=== PATIENT | male | born 1970 | race Caucasian/White ===

== ENCOUNTER 2018-01-02 19:39 | Observation (INO) | payer BC ==
[2018-01-02] MEDS ORDERED: Sodium Chloride 0.9% 10 ML Syringe FLUSH PRN (20:06)
[2018-01-02] MEDS ORDERED: Sodium Chloride 0.9% 2.5 ML Syringe FLUSH PRN (20:06)
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
[2018-01-02 20:51] LABS: CHLORIDE,CL 104 mmol/L (98-107); SODIUM,NA 137 mmol/L (136-148)
[2018-01-03] MEDS ORDERED: oxyCODONE 5 MG Tab PO PRN (00:04)
[2018-01-03] MEDS ORDERED: Enoxaparin 40 MG/0.4 ML Syringe SUBCUT SCH (01:45)
--- NOTE | 2018-01-03 01:47 | PCM.HP ---
H&P History of Present Illness - General Admit Problem/Dx: Admission Diagnosis/Problem Admission Diagnosis/Problem Cellulitis - History of Present Illness Initial Comments - Free Text/Narative: 47 yo male who presented with one day history of erythema of right onofre. He reports subjective fevers and chills. He denies any chest pain or shortness of breath. Generalized Pain Score (Numeric/FACES): 5 - Related Data Allergies/Adverse Reactions: Allergies Allergy/AdvReac Type Severity Reaction Status Date / Time ragweed pollen Allergy Intermediate Sneezing Verified 01/02/18 23:30 grass pollen-perennial rye, Allergy Sneezing Verified 01/02/18 23:30 standar weed pollen Allergy Sneezing Verified 01/02/18 23:30 Home Medications: Home Meds Cetirizine [ZyrTEC] 10 mg PO DAILY 01/02/18 [History] RX: Multivitamin [Multi-Day Vitamins] 1 tab DAILY 01/02/18 [History] RX: Naproxen 500 mg PO DAILY 01/02/18 [History] Past Medical History - Past Health History Medical/Surgical History: Denies Medical/Surgical History - Past Surgical History Musculoskeletal Surgical History: Reports: ORIF, Other (See Below) Other Musculoskeletal Surgeries/Procedures:: Surgical repair to right tib, fib and tibial plateau and right heel. Social & Family History - Family History Family Medical History: Noncontributory - Tobacco Use Smoking Status *Q: Never Smoker Second Hand Smoke Exposure: No - Caffeine Use Caffeine Use: Reports: Coffee, Soda - Recreational Drug Use Recreational Drug Use: No H&P Review of Systems - Review of Systems: Review Of Systems: ROS reveals no pertinent complaints other than HPI. Exam - Exam Exam: See Below - Vital Signs Vital Signs: Last Vital Signs Temp 36.7 C 01/02/18 22:50 Pulse 87 01/02/18 22:50 Resp 19 01/02/18 22:50 BP 119/79 01/02/18 22:50 Pulse Ox 97 01/02/18 22:50 Weight: 112.173 kg - Exam General: Alert, Oriented HEENT: Mucosa Moist & [place] Lungs: Clear to Auscultation, Normal Respiratory Effort Cardiovascular: Regular Rate, Regular Rhythm GI/Abdominal Exam: Soft, Non-Tender Extremities: Other (erythematous rash over lower anterior righ onofre, no area of fluctuance or drainage) - Patient Data Lab Results Last 24 hrs: Laboratory Results - last 24 hr 01/02/18 01/02/18 01/02/18 Range/Units 20:14 20:20 20:20 WBC 16.54 H (4.0-11.0) K/uL RBC 4.71 (4.50-5.90) M/uL Hgb 14.9 (13.0-17.0) g/dL Hct 42.1 (38.0-50.0) % MCV 89.4 (80.0-98.0) fL MCH 31.6 (27.0-32.0) pg MCHC 35.4 (31.0-37.0) g/dL RDW Std Deviation 41.7 (28.0-62.0) fl RDW Coeff of Yusuf 13 (11.0-15.0) % Plt Count 226 (150-400) K/uL MPV 10.80 (7.40-12.00) fL Neut % (Auto) 89.9 H (48.0-80.0) % Lymph % (Auto) 4.4 L (16.0-40.0) % [place] % (Auto) 5.6 (0.0-15.0) % Eos % (Auto) 0.0 (0.0-7.0) % Baso % (Auto) 0.1 (0.0-1.5) % Neut # (Auto) 14.9 H (1.4-5.7) K/uL Lymph # (Auto) 0.7 (0.6-2.4) K/uL [place] # (Auto) 0.9 H (0.0-0.8) K/uL Eos # (Auto) 0.0 (0.0-0.7) K/uL Baso # (Auto) 0.0 (0.0-0.1) K/uL Nucleated RBC % 0.0 /100WBC Nucleated RBCs # 0 K/uL ESR 1 (0-14) mm/hr Sodium 137 (136-148) mmol/L Potassium 3.8 (3.5-5.1) mmol/L Chloride 104 (98-107) mmol/L Carbon Dioxide 25.1 (21.0-32.0) mmol/L BUN 16 (7.0-18.0) mg/dL Creatinine 1.0 (0.8-1.3) mg/dL Est Cr Clr Drug Dosing TNP Estimated GFR (MDRD) > 60.0 ml/min Glucose 143 H (74-106) mg/dL Calcium 9.0 (8.5-10.1) mg/dL Total Bilirubin 1.0 (0.2-1.0) mg/dL AST 15 (15-37) IU/L ALT 21 (14-63) IU/L Alkaline Phosphatase 45 L (46-116) U/L C-Reactive Protein 11.30 H (0.00-0.90) mg/dL Total Protein 7.2 (6.4-8.2) g/dL Albumin 4.0 (3.4-5.0) g/dL Globulin 3.2 (2.0-3.5) g/dL Albumin/Globulin Ratio 1.3 (1.3-2.8) Result Diagrams: 01/03/18 05:41 01/03/18 05:41 Problem List Initiated/Reviewed/Updated: Yes Orders Last 24hrs: Active Orders 24 hr Category Date Time Status Patient Status [ADT] Stat ADT 01/02/18 21:39 Active Oxygen Therapy [RC] PRN Care 01/03/18 01:43 Ordered Up ad Veronika [RC] ASDIRECTED Care 01/03/18 01:43 Ordered VTE/DVT Education [RC] PER UNIT ROUTINE Care 01/03/18 01:43 Ordered Vital Signs [RC] Q4H Care 01/03/18 01:43 Ordered Regular Diet [DIET] Diet 01/03/18 Breakfast Active Tibia Fibula Rt [CR] Stat Exams 01/02/18 20:06 Taken BMP [BASIC METABOLIC PANEL,BMP] [CHEM] Routine Lab 01/03/18 05:00 Ordered CBC WITH AUTO DIFF [HEME] Routine Lab 01/03/18 05:00 Ordered CULTURE BLOOD [BC] Stat Lab 01/02/18 20:14 Received CULTURE BLOOD [BC] Stat Lab 01/02/18 20:20 Received Enoxaparin [Lovenox] Med 01/03/18 01:45 Ordered 40 mg SUBCUT Q24H Sodium Chloride 0.9% [Saline Flush] Med 01/02/18 20:06 Active 10 ml FLUSH ASDIRECTED PRN Sodium Chloride 0.9% [Saline Flush] Med 01/02/18 20:06 Active 2.5 ml FLUSH ASDIRECTED PRN Vancomycin 1.5 gm Med 01/03/18 06:00 Active Sodium Chloride 0.9% [Normal Saline] 500 ml IV Q8H Vancomycin Pharmacy to Dose [Pharmacy to Dose - Med 01/03/18 00:15 Pending Vancomycin] 1 dose .XX ASDIRECTED oxyCODONE Med 01/03/18 00:04 Active 5 mg PO Q4H PRN Blood Culture x2 Reflex Set [OM.PC] Stat Ot 01/02/18 20:05 Ordered Saline Lock Insert [OM.PC] Stat Ot 01/02/18 20:06 Ordered Sequential Compression Device [OM.PC] Per Unit Routine Ot 01/03/18 01:43 Ordered Resuscitation Status Routine Resus Stat 01/03/18 01:43 Ordered Medication Orders Vancomycin HCl 1.5 gm/ Sodium (Chloride) 500 mls @ 333.333 mls/hr IV Q8H [facility] Oxycodone HCl (Oxycodone) 5 mg PO Q4H PRN PRN Reason: Pain Sodium Chloride (Saline Flush) 10 ml FLUSH ASDIRECTED PRN PRN Reason: Keep Vein Open Sodium Chloride (Saline Flush) 2.5 ml FLUSH ASDIRECTED PRN PRN Reason: Keep Vein Open Vancomycin HCl (Pharmacy To Dose - Vancomycin) 1 dose .XX ASDIRECTED [facility] Assessment/Plan Comment:: 47 yo male admitted with right lower leg cellultis. We will treat with vancomycin
[2018-01-03] MEDS ORDERED: Vancomycin 1.5 GM in Sodium Chloride 0.9% 500 ML IV SCH (06:00)
[2018-01-03 06:34] LABS: CHLORIDE,CL 105 mmol/L (98-107); SODIUM,NA 139 mmol/L (136-148)
[2018-01-03] MEDS: Vancomycin 1.5 GM in Sodium Chloride 0.9% 500 ML IV SCH ×2 (09:25→17:52)
--- NOTE | 2018-01-03 15:20 | PCM.PN ---
- Review of Systems Systems Review Comment:: feeling better, no fevers. - Patient Data Vitals - Most Recent: Last Vital Signs Temp 36.8 C 01/03/18 11:52 Pulse 68 01/03/18 11:52 Resp 16 01/03/18 11:52 BP 120/76 01/03/18 11:52 Pulse Ox 96 01/03/18 11:52 Weight - Most Recent: 112.173 kg I&O - Last 24 Hours: Intake & Output 01/03/18 01/03/18 01/03/18 06:59 14:59 22:59 Intake Total 600 500 Balance 600 500 Lab Results Last 24 Hours: Laboratory Results - last 24 hr 01/02/18 01/02/18 01/02/18 Range/Units 20:14 20:20 20:20 WBC 16.54 H (4.0-11.0) K/uL RBC 4.71 (4.50-5.90) M/uL Hgb 14.9 (13.0-17.0) g/dL Hct 42.1 (38.0-50.0) % MCV 89.4 (80.0-98.0) fL MCH 31.6 (27.0-32.0) pg MCHC 35.4 (31.0-37.0) g/dL RDW Std Deviation 41.7 (28.0-62.0) fl RDW Coeff of Yusuf 13 (11.0-15.0) % Plt Count 226 (150-400) K/uL MPV 10.80 (7.40-12.00) fL Neut % (Auto) 89.9 H (48.0-80.0) % Lymph % (Auto) 4.4 L (16.0-40.0) % [place] % (Auto) 5.6 (0.0-15.0) % Eos % (Auto) 0.0 (0.0-7.0) % Baso % (Auto) 0.1 (0.0-1.5) % Neut # (Auto) 14.9 H (1.4-5.7) K/uL Lymph # (Auto) 0.7 (0.6-2.4) K/uL [place] # (Auto) 0.9 H (0.0-0.8) K/uL Eos # (Auto) 0.0 (0.0-0.7) K/uL Baso # (Auto) 0.0 (0.0-0.1) K/uL Nucleated RBC % 0.0 /100WBC Nucleated RBCs # 0 K/uL ESR 1 (0-14) mm/hr Sodium 137 (136-148) mmol/L Potassium 3.8 (3.5-5.1) mmol/L Chloride 104 (98-107) mmol/L Carbon Dioxide 25.1 (21.0-32.0) mmol/L BUN 16 (7.0-18.0) mg/dL Creatinine 1.0 (0.8-1.3) mg/dL Est Cr Clr Drug Dosing TNP Estimated GFR (MDRD) > 60.0 ml/min Glucose 143 H (74-106) mg/dL Calcium 9.0 (8.5-10.1) mg/dL Total Bilirubin 1.0 (0.2-1.0) mg/dL AST 15 (15-37) IU/L ALT 21 (14-63) IU/L Alkaline Phosphatase 45 L (46-116) U/L C-Reactive Protein 11.30 H (0.00-0.90) mg/dL Total Protein 7.2 (6.4-8.2) g/dL Albumin 4.0 (3.4-5.0) g/dL Globulin 3.2 (2.0-3.5) g/dL Albumin/Globulin Ratio 1.3 (1.3-2.8) 01/03/18 01/03/18 Range/Units 05:41 05:41 WBC 12.08 H (4.0-11.0) K/uL RBC 4.43 L (4.50-5.90) M/uL Hgb 13.8 (13.0-17.0) g/dL Hct 39.8 (38.0-50.0) % MCV 89.8 (80.0-98.0) fL MCH 31.2 (27.0-32.0) pg MCHC 34.7 (31.0-37.0) g/dL RDW Std Deviation 42.1 (28.0-62.0) fl RDW Coeff of Yusuf 13 (11.0-15.0) % Plt Count 198 (150-400) K/uL MPV 10.70 (7.40-12.00) fL Neut % (Auto) 82.0 H (48.0-80.0) % Lymph % (Auto) 10.6 L (16.0-40.0) % [place] % (Auto) 7.2 (0.0-15.0) % Eos % (Auto) 0.0 (0.0-7.0) % Baso % (Auto) 0.2 (0.0-1.5) % Neut # (Auto) 9.9 H (1.4-5.7) K/uL Lymph # (Auto) 1.3 (0.6-2.4) K/uL [place] # (Auto) 0.9 H (0.0-0.8) K/uL Eos # (Auto) 0.0 (0.0-0.7) K/uL Baso # (Auto) 0.0 (0.0-0.1) K/uL Nucleated RBC % 0.0 /100WBC Nucleated RBCs # 0 K/uL ESR (0-14) mm/hr Sodium 139 (136-148) mmol/L Potassium 3.5 (3.5-5.1) mmol/L Chloride 105 (98-107) mmol/L Carbon Dioxide 26.2 (21.0-32.0) mmol/L BUN 16 (7.0-18.0) mg/dL Creatinine 0.9 (0.8-1.3) mg/dL Est Cr Clr Drug Dosing 125.91 Estimated GFR (MDRD) > 60.0 ml/min Glucose 119 H (74-106) mg/dL Calcium 8.9 (8.5-10.1) mg/dL Total Bilirubin (0.2-1.0) mg/dL AST (15-37) IU/L ALT (14-63) IU/L Alkaline Phosphatase (46-116) U/L C-Reactive Protein (0.00-0.90) mg/dL Total Protein (6.4-8.2) g/dL Albumin (3.4-5.0) g/dL Globulin (2.0-3.5) g/dL Albumin/Globulin Ratio (1.3-2.8) Med Orders - Current: Current Medications Enoxaparin Sodium (Lovenox) 40 mg SUBCUT Q24H [facility] Vancomycin HCl 1.5 gm/ Sodium (Chloride) 500 mls @ 333.333 mls/hr IV Q8H [facility] Last Admin: 01/03/18 09:25 Dose: 333.333 mls/hr Oxycodone HCl (Oxycodone) 5 mg PO Q4H PRN PRN Reason: Pain Sodium Chloride (Saline Flush) 10 ml FLUSH ASDIRECTED PRN PRN Reason: Keep Vein Open Sodium Chloride (Saline Flush) 2.5 ml FLUSH ASDIRECTED PRN PRN Reason: Keep Vein Open Vancomycin HCl (Pharmacy To Dose - Vancomycin) 1 dose .XX ASDIRECTED [facility] Discontinued Medications Enoxaparin Sodium (Lovenox) 40 mg SUBCUT Q24H [facility] Last Admin: 01/03/18 02:05 Dose: 40 mg Vancomycin HCl 1 gm/ Sodium (Chloride) 250 mls @ 250 mls/hr IV ONETIME ONE Stop: 01/02/18 22:00 Last Admin: 01/02/18 21:38 Dose: 250 mls/hr Vancomycin HCl 500 mg/ Sodium (Chloride) 100 mls @ 100 mls/hr IV ONETIME ONE Stop: 01/03/18 01:29 Last Admin: 01/03/18 01:56 Dose: 100 mls/hr Vancomycin HCl 1.5 gm/ Sodium (Chloride) 500 mls @ 333.333 mls/hr IV Q8H [facility] - Exam General: Alert, Oriented HEENT: Mucous Membr. Moist/[place] Cardiovascular: Regular Rate, Regular Rhythm GI/Abdominal Exam: Soft, Non-Tender Extremities: Other (rash on right lower leg of anterior onofre remains the same, no areas of induration or fluctuance) Neurological: No New Focal Deficit - Problem List Review Problem List Initiated/Reviewed/Updated: Yes - My Orders Last 24 Hours: My Active Orders 01/03/18 00:04 oxyCODONE 5 mg PO Q4H PRN 01/03/18 00:15 Vancomycin Pharmacy to Dose [Pharmacy to Dose - Vancomycin] 1 dose .XX ASDIRECTED 01/03/18 01:43 Oxygen Therapy [RC] PRN Up ad Veronika [RC] ASDIRECTED VTE/DVT Education [RC] PER UNIT ROUTINE Vital Signs [RC] Q4H Sequential Compression Device [OM.PC] Per Unit Routine Resuscitation Status Routine 01/03/18 10:00 Vancomycin 1.5 gm Sodium Chloride 0.9% [Normal Saline] 500 ml IV Q8H 01/03/18 Breakfast Regular Diet [DIET] 01/04/18 06:00 Enoxaparin [Lovenox] 40 mg SUBCUT Q24H - Plan Plan:: 47 yo male admitted with right lower leg cellultis. We will continue another day of IV vancomycin
[2018-01-04] MEDS: Vancomycin 1.5 GM in Sodium Chloride 0.9% 500 ML IV SCH ×2 (01:42→11:52)
[2018-01-04] MEDS ORDERED: Enoxaparin 40 MG/0.4 ML Syringe SUBCUT SCH (06:00)
[2018-01-04 06:13] LABS: CHLORIDE,CL 108 mmol/L (98-107); SODIUM,NA 143 mmol/L (136-148)
--- NOTE | 2018-01-04 14:53 | CR ---
EXAM DATE: 01/02/18 PATIENT'S AGE: 47 Patient: EVELIA SYLVESTER Facility: [place], [place] Site . Site : [id number] Study: XRay Extremity Right tib/fib [id number]/28/2018 8:58:24 PM Ordering Physician: Doctor Alanis Final Report: HISTORY: Cellulitis. FINDINGS/IMPRESSION: Five views of the right tibia and fibula demonstrate 2 compression plate and multiple screws fixing a right tibial plateau fracture in anatomic alignment. Hardware is intact. There is degenerative changes in the medial and lateral joint spaces of the right knee. No joint effusion is identified. There is a tract from prior ORIF in the mid to distal tibial diaphysis. There are 4 screws fixing the calcaneus. There is a traction spur at the plantar aspect of the calcaneus. There are soft tissue phleboliths present. No acute fracture or bony abnormality is identified. Dictated by Mercedes Lyons MD @ 01/02/2018 9:08:50 PM Dictated by: Mercedes Lyons MD @ 01/02/2018 21:09:04 (Electronic Signature) Report Signed by Proxy. GUIDO
== END 2018-01-04 14:00 | disposition home or self-care (01) ==
LOC: MW.ED 19:39 → MW.MS 21:39
PROVIDERS: ADMIT Internal Medicine; ATTEND Internal Medicine
DX: L03.115 Cellulitis of right lower limb (principal); J30.1 Allergic rhinitis due to pollen; Z79.2 Long term (current) use of antibiotics
CPT/HCPCS: 36415; 73590; 80048; 80053; 80202; 85025; 85652; 86140; 87040; 96365; 99284; J1650; J3370; J7030; J7040; J7050; 96366; 96372; 96376; G0378

== ENCOUNTER 2019-06-26 12:53 | Inpatient (IN) | payer BC ==
--- NOTE | 2019-06-26 13:21 | EDM.PDOC ---
ED HPI GENERAL MEDICAL PROBLEM - General Chief Complaint: Lower Extremity Injury/Pain Stated Complaint: RIGHT SWOLLEN KNEE Time Seen by Provider: 06/26/19 13:11 Source of Information: Reports: Patient History Limitations: Reports: No Limitations - History of Present Illness INITIAL COMMENTS - FREE TEXT/NARRATIVE: HISTORY AND PHYSICAL: History of present illness: Patient is a 49-year-old male presents to the ED with complaint of right knee pain. He reports pain, swelling, and redness of the knee x 3 days. He denies recent injury or trauma. He states he did have an abrasion to the knee 1 week ago. Reports subjective fevers. He has history of cellulitis to the right lower extremity. He is able to walk on the right leg without difficultly. Review of systems: As per history of present illness and below otherwise all systems reviewed and negative. Past medical history: As per history of present illness and as reviewed below otherwise noncontributory. Surgical history: As per history of present illness and as reviewed below otherwise noncontributory. Social history: No reported history of drug or alcohol abuse. Family history: As per history of present illness and as reviewed below otherwise noncontributory. Physical exam: General: Patient sitting comfortably in no acute distress and nontoxic appearing HEENT: Atraumatic, normocephalic, pupils reactive, negative for conjunctival pallor or scleral icterus, mucous membranes moist, throat clear, neck supple, nontender, trachea midline. No meningeal signs. Lungs: Clear to auscultation, breath sounds equal bilaterally, chest nontender. Heart: S1S2, regular, negative for clicks, rubs, or overt murmur. Abdomen: Soft, nondistended, nontender. Negative for masses or hepatosplenomegaly. Negative for costovertebral tenderness. No rigidity, rebound , guarding. Pelvis: Stable nontender. Genitourinary: Deferred. Rectal: Deferred. Extremities: Anterior right knee is erythematous and warm. Normal ROM without pain. There is 1cm scab to the anterior knee. Atraumatic, negative for cords or calf pain. Neurovascular unremarkable. Neuro: Awake, alert, oriented. Cranial nerves II through XII unremarkable. Cerebellum unremarkable. Motor and sensory unremarkable throughout. Exam nonfocal. Notes: Diagnostics: CBC, CMP, right knee x-ray Therapeutics: 1g Vancomycin IV Prescriptions: Impression: Cellulitis, leukocytosis Plan: Discussed with Dr. Vasquez patient will be admitted to observation for cellulitis Definitive disposition and diagnosis as appropriate pending reevaluation and review of above. Right Knee Pain Score (Numeric/FACES): 3 - Related Data Allergies Allergy/AdvReac Type Severity Reaction Status Date / Time ragweed pollen Allergy Intermediate Sneezing Verified 06/26/19 13:05 grass pollen-perennial rye, Allergy Sneezing Verified 06/26/19 13:05 standar meperidine [From Demerol] Allergy Hives Verified 06/26/19 14:49 weed pollen Allergy Sneezing Verified 06/26/19 13:05 Home Meds: Home Meds Cetirizine [ZyrTEC] 10 mg PO DAILY 01/02/18 [History] Multivitamin [Multi-Day Vitamins] 1 tab DAILY 01/02/18 [History] Naproxen 500 mg PO DAILY 01/02/18 [History] Past Medical History - Past Health History Medical/Surgical History: Denies Medical/Surgical History - Past Surgical History Musculoskeletal Surgical History: Reports: ORIF, Other (See Below) Other Musculoskeletal Surgeries/Procedures:: Surgical repair to right tib, fib and tibial plateau and right heel. Social & Family History - Family History Family Medical History: Noncontributory - Caffeine Use Caffeine Use: Reports: Coffee, Soda Review of Systems - Review of Systems Review Of Systems: ROS reveals no pertinent complaints other than HPI. ED EXAM, GENERAL - Physical Exam Exam: See Below (see dictation) Course - Vital Signs Last Recorded V/S: Last Vital Signs Temp 97.8 F 06/26/19 13:07 Pulse 99 06/26/19 13:07 Resp 17 06/26/19 13:07 BP 129/89 06/26/19 13:07 Pulse Ox 97 06/26/19 13:07 - Orders/Labs/Meds Orders: Active Orders 24 hr Category Date Time Status Admission Status [Patient Status] [ADT] Stat ADT 06/26/19 14:28 Active CULTURE BLOOD [BC] Stat Lab 06/26/19 14:45 Received CULTURE BLOOD [BC] Stat Lab 06/26/19 14:55 Results Sodium Chloride 0.9% [Saline Flush] Med 06/26/19 14:04 Active 10 ml FLUSH ASDIRECTED PRN Sodium Chloride 0.9% [Saline Flush] Med 06/26/19 14:04 Active 2.5 ml FLUSH ASDIRECTED PRN Vancomycin 1 gm Med 06/26/19 14:08 Active Sodium Chloride 0.9% [Normal Saline (AdvBag)] 250 ml IV ONETIME Blood Culture x2 Reflex Set [OM.PC] Stat Oth 06/26/19 14:08 Ordered Saline Lock Insert [OM.PC] Stat Oth 06/26/19 14:04 Ordered Medication Orders Vancomycin HCl 1 gm/ Sodium (Chloride) 250 mls @ 166 mls/hr IV ONETIME ONE Stop: 06/26/19 15:38 Last Admin: 06/26/19 14:49 Dose: 166 mls/hr Sodium Chloride (Saline Flush) 10 ml FLUSH ASDIRECTED PRN PRN Reason: Keep Vein Open Sodium Chloride (Saline Flush) 2.5 ml FLUSH ASDIRECTED PRN PRN Reason: Keep Vein Open Labs: Laboratory Tests 06/26/19 06/26/19 06/26/19 Range/Units 13:43 13:43 13:43 WBC 17.31 H (4.0-11.0) K/uL RBC 4.82 (4.50-5.90) M/uL Hgb 15.1 (13.0-17.0) g/dL Hct 44.7 (38.0-50.0) % MCV 92.7 (80.0-98.0) fL MCH 31.3 (27.0-32.0) pg MCHC 33.8 (31.0-37.0) g/dL RDW Std Deviation 44.5 (28.0-62.0) fl RDW Coeff of Yusuf 13 (11.0-15.0) % Plt Count 236 (150-400) K/uL MPV 10.70 (7.40-12.00) fL Neut % (Auto) 84.5 H (48.0-80.0) % Lymph % (Auto) 7.5 L (16.0-40.0) % [place] % (Auto) 7.8 (0.0-15.0) % Eos % (Auto) 0.1 (0.0-7.0) % Baso % (Auto) 0.1 (0.0-1.5) % Neut # (Auto) 14.6 H (1.4-5.7) K/uL Lymph # (Auto) 1.3 (0.6-2.4) K/uL [place] # (Auto) 1.4 H (0.0-0.8) K/uL Eos # (Auto) 0.0 (0.0-0.7) K/uL Baso # (Auto) 0.0 (0.0-0.1) K/uL Nucleated RBC % 0.0 /100WBC Nucleated RBCs # 0 K/uL Lactate 1.2 (0.20-2.00) mmol/L Sodium 138 (136-148) mmol/L Potassium 4.3 (3.5-5.1) mmol/L Chloride 103 (98-107) mmol/L Carbon Dioxide 26.2 (21.0-32.0) mmol/L BUN 14 (7.0-18.0) mg/dL Creatinine 1.0 (0.8-1.3) mg/dL Est Cr Clr Drug Dosing 110.91 mL/min Estimated GFR (MDRD) > 60.0 ml/min Glucose 106 (74-106) mg/dL Calcium 8.8 (8.5-10.1) mg/dL Total Bilirubin 1.2 H (0.2-1.0) mg/dL AST 23 (15-37) IU/L ALT 28 (14-63) IU/L Alkaline Phosphatase 54 (46-116) U/L Total Protein 7.8 (6.4-8.2) g/dL Albumin 3.9 (3.4-5.0) g/dL Globulin 3.9 (2.6-4.0) g/dL Albumin/Globulin Ratio 1.0 (0.9-1.6) Meds: Medications Generic Name Dose Route Start Last Admin Trade Name Freq PRN Reason Stop Dose Admin Vancomycin HCl 1 gm/ Sodium 250 mls @ 166 mls/hr 06/26/19 14:08 06/26/19 14: 49 Chloride IV 06/26/19 15:38 166 mls/hr ONETIME ONE Administration Sodium Chloride 10 ml 06/26/19 14:04 Saline Flush FLUSH ASDIRECTED PRN Keep Vein Open Sodium Chloride 2.5 ml 06/26/19 14:04 Saline Flush FLUSH ASDIRECTED PRN Keep Vein Open Discontinued Medications Generic Name Dose Route Start Last Admin Trade Name Freq PRN Reason Stop Dose Admin Ceftriaxone Sodium/Dextrose 1 50 mls @ 100 mls/hr 06/26/19 14:04 06/26/19 14: 16 gm/ Premix IV 06/26/19 14:33 Not Given ONETIME ONE Departure - Departure Time of Disposition: 14:28 Disposition: Refer to Observation Condition: Good Clinical Impression: Cellulitis Qualifiers: Site of cellulitis: extremity Site of cellulitis of extremity: lower extremity Laterality: right Qualified Code(s): L03.115 - Cellulitis of right lower limb - Discharge Information Referrals: PCP,None [Primary Care Provider] - Forms: ED Department Discharge - My Orders Last 24 Hours: My Active Orders 06/26/19 14:04 Sodium Chloride 0.9% [Saline Flush] 10 ml FLUSH ASDIRECTED PRN Sodium Chloride 0.9% [Saline Flush] 2.5 ml FLUSH ASDIRECTED PRN Saline Lock Insert [OM.PC] Stat 06/26/19 14:08 Vancomycin 1 gm Sodium Chloride 0.9% [Normal Saline (AdvBag)] 250 ml IV ONETIME Blood Culture x2 Reflex Set [OM.PC] Stat 06/26/19 14:28 Admission Status [Patient Status] [ADT] Stat 06/26/19 14:45 CULTURE BLOOD [BC] Stat 06/26/19 14:55 CULTURE BLOOD [BC] Stat - Assessment/Plan Last 24 Hours: My Active Orders 06/26/19 14:04 Sodium Chloride 0.9% [Saline Flush] 10 ml FLUSH ASDIRECTED PRN Sodium Chloride 0.9% [Saline Flush] 2.5 ml FLUSH ASDIRECTED PRN Saline Lock Insert [OM.PC] Stat 06/26/19 14:08 Vancomycin 1 gm Sodium Chloride 0.9% [Normal Saline (AdvBag)] 250 ml IV ONETIME Blood Culture x2 Reflex Set [OM.PC] Stat 06/26/19 14:28 Admission Status [Patient Status] [ADT] Stat 06/26/19 14:45 CULTURE BLOOD [BC] Stat 06/26/19 14:55 CULTURE BLOOD [BC] Stat
[2019-06-26] MEDS ORDERED: Sodium Chloride 0.9% 10 ML Syringe FLUSH PRN (14:04)
[2019-06-26] MEDS ORDERED: cefTRIAXone 1 GM in Premix Bag 1 BAG IV ONE (14:04)
[2019-06-26] MEDS ORDERED: Sodium Chloride 0.9% 2.5 ML Syringe FLUSH PRN (14:04)
--- NOTE | 2019-06-26 14:12 | CR ---
INDICATION: Right knee pain, swelling and redness. TECHNIQUE: Three views of the right knee. COMPARISON: Right tib fib x-rays of 01/02/2018. FINDINGS: Prepatellar soft tissue swelling, suggesting prepatellar bursitis. No joint effusion. No erosive change. Mild osteoarthritis at all 3 compartments. No chondrocalcinosis. Proximal tibial hardware, as before. IMPRESSION: 1. Prepatellar soft tissue swelling, consistent with prepatellar bursitis. 2. Mild osteoarthritis at all 3 compartments. 3. Proximal tibial hardware, as before. Dictated by Lopez Gilmore MD @ Jun 26 2019 2:08PM Signed by Dr. Lopez Gilmore @ Jun 26 2019 2:11PM
[2019-06-26 14:13] LABS: BLOOD UREA NITROGEN,BUN 14 mg/dL (7.0-18.0); CARBON DIOXIDE,CO2 26.2 mmol/L (21.0-32.0); CHLORIDE,CL 103 mmol/L (98-107); GLUCOSE RANDOM 106 mg/dL (74-106); POTASSIUM,K 4.3 mmol/L (3.5-5.1); SODIUM,NA 138 mmol/L (136-148)
--- NOTE | 2019-06-26 15:08 | PCM.HP.2 ---
H&P History of Present Illness - General Date of Service: 06/26/19 Admit Problem/Dx: Admission Diagnosis/Problem Admission Diagnosis/Problem Cellulitis Source of Information: Patient History Limitations: Reports: No Limitations - History of Present Illness Initial Comments - Free Text/Narative: The patient is an otherwise healthy 49-year-old gentleman who had presented to the emergency department with a complaint of right swollen knee. The patient reports that he has had pain, swelling and redness of his knee for the past week. The patient does work on his hands and these occasionally and he has denied any recent trauma. The patient did have an abrasion to his knee last week. He reports that he has had fever and chills. He has denied any diaphoresis , headaches or dizziness or lightheadedness. The patient's pain is located primarily in the anterior portion of his right knee. It does not radiate. Patient also has a history of cellulitis in his right lower extremity. The patient has had a significant injury to his right knee tibial plateau fracture and multiple surgeries. Onset of Symptoms: Reports: Gradual Duration of Symptoms: Reports: Day(s):, Getting Worse Location: Reports: Lower Extremity, Right Quality: Reports: Ache, Pressure, Throbbing Severity: Moderate Improves with: Reports: Medication, Rest Worsens with: Reports: Movement Associated Symptoms: Reports: Fever/Chills, Rash Right Knee Pain Score (Numeric/FACES): 3 - Related Data Allergies/Adverse Reactions: Allergies Allergy/AdvReac Type Severity Reaction Status Date / Time ragweed pollen Allergy Intermediate Sneezing Verified 06/26/19 13:05 grass pollen-perennial rye, Allergy Sneezing Verified 06/26/19 13:05 standar meperidine [From Demerol] Allergy Hives Verified 06/26/19 14:49 weed pollen Allergy Sneezing Verified 06/26/19 13:05 Home Medications: Home Meds Cetirizine [ZyrTEC] 10 mg PO DAILY 01/02/18 [History] Multivitamin [Multi-Day Vitamins] 1 tab DAILY 01/02/18 [History] Naproxen 500 mg PO DAILY 01/02/18 [History] Past Medical History - Past Health History Medical/Surgical History: Denies Medical/Surgical History HEENT History: Reports: Allergic Rhinitis Cardiovascular History: Reports: None Respiratory History: Reports: None Gastrointestinal History: Reports: None Genitourinary History: Reports: None Musculoskeletal History: Reports: None Neurological History: Reports: None Psychiatric History: Reports: None Endocrine/Metabolic History: Reports: None Hematologic History: Reports: None Immunologic History: Reports: None Oncologic (Cancer) History: Reports: None Dermatologic History: Reports: None - Infectious Disease History Infectious Disease History: Reports: Chicken Pox - Past Surgical History Musculoskeletal Surgical History: Reports: ORIF, Other (See Below) Other Musculoskeletal Surgeries/Procedures:: Surgical repair to right tib, fib and tibial plateau and right heel. Social & Family History - Family History Family Medical History: Noncontributory - Tobacco Use Smoking Status *Q: Former Smoker Tobacco Use Within Last Twelve Months: Snuff/Dip Used Tobacco, but Quit: Yes Month/Year Tobacco Last Used: 1996 - Caffeine Use Caffeine Use: Reports: Coffee, Soda - Alcohol Use Alcohol Use History: Yes Alcohol Use in Last Twelve Months: Yes Alcohol Use Frequency: Rarely - Recreational Drug Use Recreational Drug Use: No - Living Situation & Occupation Living situation: Reports: , with Spouse Occupation: Employed H&P Review of Systems - Review of Systems: Review Of Systems: See Below General: Reports: Fever, Chills HEENT: Reports: No Symptoms Pulmonary: Reports: No Symptoms Cardiovascular: Reports: No Symptoms Gastrointestinal: Reports: No Symptoms Genitourinary: Reports: No Symptoms Musculoskeletal: Reports: Joint Pain (Right knee) Skin: Reports: Rash (Erythema, edema) Psychiatric: Reports: No Symptoms Neurological: Reports: No Symptoms Hematologic/Lymphatic: Reports: No Symptoms Immunologic: Reports: No Symptoms Exam - Exam Exam: See Below - Vital Signs Vital Signs: Last Vital Signs Temp 36.6 C 06/26/19 13:07 Pulse 99 06/26/19 13:07 Resp 17 06/26/19 13:07 BP 129/89 06/26/19 13:07 Pulse Ox 97 06/26/19 13:07 Weight: 113.398 kg - Exam Quality Assessment: No: Supplemental Oxygen General: Alert, Oriented, Cooperative, Mild Distress HEENT: Conjunctiva Clear, EACs Clear, EOMI, Pupils Equal, PERRLA. No: Mucosa Moist & [place] (Dry) Neck: Supple, Trachea Midline Lungs: Clear to Auscultation, Normal Respiratory Effort Cardiovascular: Regular Rate, Regular Rhythm GI/Abdominal Exam: Normal Bowel Sounds, Soft, No Distention. No: Guarding, Rigid Back Exam: Normal Inspection, Full Range of Motion Extremities: Normal Inspection, No Pedal Edema Skin: Warm, Dry, Other (Area superficial infection around right peripatellar bursa, nonpainful passive range of motion) Neurological: Cranial Nerves Intact. No: Normal Gait (Limping gait) Neuro Extensive - Mental Status: Alert, Oriented x3, Normal Mood/Affect Psychiatric: Alert, Normal Affect, Normal Mood - Patient Data Lab Results Last 24 hrs: Laboratory Results - last 24 hr 06/26/19 06/26/19 06/26/19 Range/Units 13:43 13:43 13:43 WBC 17.31 H (4.0-11.0) K/uL RBC 4.82 (4.50-5.90) M/uL Hgb 15.1 (13.0-17.0) g/dL Hct 44.7 (38.0-50.0) % MCV 92.7 (80.0-98.0) fL MCH 31.3 (27.0-32.0) pg MCHC 33.8 (31.0-37.0) g/dL RDW Std Deviation 44.5 (28.0-62.0) fl RDW Coeff of Yusuf 13 (11.0-15.0) % Plt Count 236 (150-400) K/uL MPV 10.70 (7.40-12.00) fL Neut % (Auto) 84.5 H (48.0-80.0) % Lymph % (Auto) 7.5 L (16.0-40.0) % [place] % (Auto) 7.8 (0.0-15.0) % Eos % (Auto) 0.1 (0.0-7.0) % Baso % (Auto) 0.1 (0.0-1.5) % Neut # (Auto) 14.6 H (1.4-5.7) K/uL Lymph # (Auto) 1.3 (0.6-2.4) K/uL [place] # (Auto) 1.4 H (0.0-0.8) K/uL Eos # (Auto) 0.0 (0.0-0.7) K/uL Baso # (Auto) 0.0 (0.0-0.1) K/uL Nucleated RBC % 0.0 /100WBC Nucleated RBCs # 0 K/uL Lactate 1.2 (0.20-2.00) mmol/L Sodium 138 (136-148) mmol/L Potassium 4.3 (3.5-5.1) mmol/L Chloride 103 (98-107) mmol/L Carbon Dioxide 26.2 (21.0-32.0) mmol/L BUN 14 (7.0-18.0) mg/dL Creatinine 1.0 (0.8-1.3) mg/dL Est Cr Clr Drug Dosing 110.91 mL/min Estimated GFR (MDRD) > 60.0 ml/min Glucose 106 (74-106) mg/dL Calcium 8.8 (8.5-10.1) mg/dL Total Bilirubin 1.2 H (0.2-1.0) mg/dL AST 23 (15-37) IU/L ALT 28 (14-63) IU/L Alkaline Phosphatase 54 (46-116) U/L Total Protein 7.8 (6.4-8.2) g/dL Albumin 3.9 (3.4-5.0) g/dL Globulin 3.9 (2.6-4.0) g/dL Albumin/Globulin Ratio 1.0 (0.9-1.6) Result Diagrams: 06/26/19 13:43 06/26/19 13:43 Doc Results Last 24 hrs: Microbiology 06/26/19 14:55 Anaerobic Blood Culture - Final Blood - Venous - Lab Draw - Problem List (1) Cellulitis SNOMED Code(s): 113968298 ICD Code: L03.90 - CELLULITIS, UNSPECIFIED Status: Acute Priority: High Current Visit: Yes Problem Details: Area of right patellar bursa Qualifiers: Site of cellulitis: extremity Site of cellulitis of extremity: lower extremity Laterality: right Qualified Code(s): L03.115 - Cellulitis of right lower limb (2) Fever and chills SNOMED Code(s): 255843047 ICD Code: R50.9 - FEVER, UNSPECIFIED Status: Acute Priority: High Current Visit: Yes (3) Neutrophilic leukocytosis SNOMED Code(s): 991039678, 385764642 ICD Code: D72.9 - DISORDER OF WHITE BLOOD CELLS, UNSPECIFIED Status: Acute Priority: High Current Visit: Yes (4) Tobacco user SNOMED Code(s): 600858684 ICD Code: Z72.0 - TOBACCO USE Status: Chronic Priority: Medium Current Visit: Yes Problem List Initiated/Reviewed/Updated: Yes Orders Last 24hrs: Active Orders 24 hr Category Date Time Status Admission Status [Patient Status] [ADT] Stat ADT 06/26/19 14:28 Active CULTURE BLOOD [BC] Stat Lab 06/26/19 14:45 Received CULTURE BLOOD [BC] Stat Lab 06/26/19 14:55 Results Sodium Chloride 0.9% [Saline Flush] Med 06/26/19 14:04 Active 10 ml FLUSH ASDIRECTED PRN Sodium Chloride 0.9% [Saline Flush] Med 06/26/19 14:04 Active 2.5 ml FLUSH ASDIRECTED PRN Vancomycin 1 gm Med 06/26/19 14:08 Active Sodium Chloride 0.9% [Normal Saline (AdvBag)] 250 ml IV ONETIME Blood Culture x2 Reflex Set [OM.PC] Stat Oth 06/26/19 14:08 Ordered Saline Lock Insert [OM.PC] Stat Ot 06/26/19 14:04 Ordered Medication Orders Vancomycin HCl 1 gm/ Sodium (Chloride) 250 mls @ 166 mls/hr IV ONETIME ONE Stop: 06/26/19 15:38 Last Admin: 06/26/19 14:49 Dose: 166 mls/hr Sodium Chloride (Saline Flush) 10 ml FLUSH ASDIRECTED PRN PRN Reason: Keep Vein Open Sodium Chloride (Saline Flush) 2.5 ml FLUSH ASDIRECTED PRN PRN Reason: Keep Vein Open Assessment/Plan Comment:: The patient is an otherwise healthy 49-year-old gentleman who has been admitted to observation for IV antibiotics and IV fluids. The patient will be started on vancomycin pharmacy to dose. I've also ordered the patient to have normal saline IV at 75 mL per hour. He is to have his regular diet as tolerated. Patient also be anticoagulated with the use of Lovenox 30 mg subcutaneous every 24 hours. X-rays were reviewed. Repeat laboratory studies have been ordered. Blood cultures have been obtained and are currently pending. Patient's vital signs be taken every 4 hours. He should be appropriate for discharge in 1-2 days. - Mortality Measure Prognosis:: Good
[2019-06-26] MEDS ORDERED: Albuterol/Ipratropium 3.0-0.5 MG/3 ML Neb Soln NEB PRN (16:09)
[2019-06-26] MEDS ORDERED: Enoxaparin 30 MG/0.3 ML Syringe SUBCUT SCH (16:15)
[2019-06-26] MEDS: Sodium Chloride 0.9% 1,000 ML IV SCH (17:32)
[2019-06-26] MEDS: Acetaminophen 325 MG Tab PO PRN (20:10)
[2019-06-27 06:15] LABS: BLOOD UREA NITROGEN,BUN 8 mg/dL (7.0-18.0); CARBON DIOXIDE,CO2 26.3 mmol/L (21.0-32.0); CHLORIDE,CL 103 mmol/L (98-107); GLUCOSE RANDOM 120 mg/dL (74-106); POTASSIUM,K 3.8 mmol/L (3.5-5.1); SODIUM,NA 138 mmol/L (136-148)
[2019-06-27] MEDS: Ketorolac 30 MG/ML SDV IV PRN ×2 (06:27→17:52)
[2019-06-27] MEDS: Sodium Chloride 0.9% 1,000 ML IV SCH ×2 (06:30→22:47)
[2019-06-27] MEDS ORDERED: cefTRIAXone 1 GM in Premix Bag 1 BAG IV ONE (10:46)
--- NOTE | 2019-06-27 11:13 | PCM.PN ---
- General Info Date of Service: 06/27/19 Subjective Update: 49 y/o male admitted for right lower leg cellulitis. This morning, states cellulitis has spread. Pain under control. No fevers. - Patient Data Vitals - Most Recent: Last Vital Signs Temp 37.0 C 06/27/19 09:00 Pulse 88 06/27/19 07:34 Resp 18 06/27/19 07:34 BP 120/73 06/27/19 07:34 Pulse Ox 93 L 06/27/19 07:34 Weight - Most Recent: 118.433 kg I&O - Last 24 Hours: Intake & Output 06/26/19 06/27/19 06/27/19 22:59 06:59 14:59 Intake Total 1684 Output Total 1300 Balance 384 Lab Results Last 24 Hours: Laboratory Results - last 24 hr 06/26/19 06/26/19 06/26/19 Range/Units 13:43 13:43 13:43 WBC 17.31 H (4.0-11.0) K/uL RBC 4.82 (4.50-5.90) M/uL Hgb 15.1 (13.0-17.0) g/dL Hct 44.7 (38.0-50.0) % MCV 92.7 (80.0-98.0) fL MCH 31.3 (27.0-32.0) pg MCHC 33.8 (31.0-37.0) g/dL RDW Std Deviation 44.5 (28.0-62.0) fl RDW Coeff of Yusuf 13 (11.0-15.0) % Plt Count 236 (150-400) K/uL MPV 10.70 (7.40-12.00) fL Neut % (Auto) 84.5 H (48.0-80.0) % Lymph % (Auto) 7.5 L (16.0-40.0) % [place] % (Auto) 7.8 (0.0-15.0) % Eos % (Auto) 0.1 (0.0-7.0) % Baso % (Auto) 0.1 (0.0-1.5) % Neut # (Auto) 14.6 H (1.4-5.7) K/uL Lymph # (Auto) 1.3 (0.6-2.4) K/uL [place] # (Auto) 1.4 H (0.0-0.8) K/uL Eos # (Auto) 0.0 (0.0-0.7) K/uL Baso # (Auto) 0.0 (0.0-0.1) K/uL Nucleated RBC % 0.0 /100WBC Nucleated RBCs # 0 K/uL Lactate 1.2 (0.20-2.00) mmol/L Sodium 138 (136-148) mmol/L Potassium 4.3 (3.5-5.1) mmol/L Chloride 103 (98-107) mmol/L Carbon Dioxide 26.2 (21.0-32.0) mmol/L BUN 14 (7.0-18.0) mg/dL Creatinine 1.0 (0.8-1.3) mg/dL Est Cr Clr Drug Dosing 110.91 mL/min Estimated GFR (MDRD) > 60.0 ml/min Glucose 106 (74-106) mg/dL Calcium 8.8 (8.5-10.1) mg/dL Total Bilirubin 1.2 H (0.2-1.0) mg/dL AST 23 (15-37) IU/L ALT 28 (14-63) IU/L Alkaline Phosphatase 54 (46-116) U/L Total Protein 7.8 (6.4-8.2) g/dL Albumin 3.9 (3.4-5.0) g/dL Globulin 3.9 (2.6-4.0) g/dL Albumin/Globulin Ratio 1.0 (0.9-1.6) 06/27/19 06/27/19 Range/Units 05:40 05:40 WBC 17.02 H (4.0-11.0) K/uL RBC 4.35 L (4.50-5.90) M/uL Hgb 13.5 (13.0-17.0) g/dL Hct 40.3 (38.0-50.0) % MCV 92.6 (80.0-98.0) fL MCH 31.0 (27.0-32.0) pg MCHC 33.5 (31.0-37.0) g/dL RDW Std Deviation 44.6 (28.0-62.0) fl RDW Coeff of Yusuf 13 (11.0-15.0) % Plt Count 202 (150-400) K/uL MPV 10.30 (7.40-12.00) fL Neut % (Auto) 82.5 H (48.0-80.0) % Lymph % (Auto) 9.3 L (16.0-40.0) % [place] % (Auto) 8.0 (0.0-15.0) % Eos % (Auto) 0.1 (0.0-7.0) % Baso % (Auto) 0.1 (0.0-1.5) % Neut # (Auto) 14.1 H (1.4-5.7) K/uL Lymph # (Auto) 1.6 (0.6-2.4) K/uL [place] # (Auto) 1.4 H (0.0-0.8) K/uL Eos # (Auto) 0.0 (0.0-0.7) K/uL Baso # (Auto) 0.0 (0.0-0.1) K/uL Nucleated RBC % 0.0 /100WBC Nucleated RBCs # 0 K/uL Lactate (0.20-2.00) mmol/L Sodium 138 (136-148) mmol/L Potassium 3.8 (3.5-5.1) mmol/L Chloride 103 (98-107) mmol/L Carbon Dioxide 26.3 (21.0-32.0) mmol/L BUN 8 (7.0-18.0) mg/dL Creatinine 1.0 (0.8-1.3) mg/dL Est Cr Clr Drug Dosing 110.91 mL/min Estimated GFR (MDRD) > 60.0 ml/min Glucose 120 H (74-106) mg/dL Calcium 8.1 L (8.5-10.1) mg/dL Total Bilirubin 1.3 H (0.2-1.0) mg/dL AST 15 (15-37) IU/L ALT 18 (14-63) IU/L Alkaline Phosphatase 55 (46-116) U/L Total Protein 6.7 (6.4-8.2) g/dL Albumin 3.1 L (3.4-5.0) g/dL Globulin 3.6 (2.6-4.0) g/dL Albumin/Globulin Ratio 0.9 (0.9-1.6) Doc Results Last 24 Hours: Microbiology 06/26/19 14:55 Anaerobic Blood Culture - Final Blood - Venous - Lab Draw Med Orders - Current: Current Medications Acetaminophen (Tylenol) 650 mg PO Q4H PRN PRN Reason: Pain (Mild 1-3)/fever Last Admin: 06/26/19 20:10 Dose: 650 mg Albuterol/Ipratropium (Duoneb 3.0-0.5 Mg/3 Ml) 3 ml NEB Q4HRRT PRN PRN Reason: Shortness Of Breath/wheezing Enoxaparin Sodium (Lovenox) 40 mg SUBCUT Q24H GONZÁLEZ Sodium Chloride (Normal Saline) 1,000 mls @ 75 mls/hr IV ASDIRECTED GONZÁLEZ Last Admin: 06/27/19 06:30 Dose: 75 mls/hr Vancomycin HCl 1.25 gm/ Sodium (Chloride) 250 mls @ 250 mls/hr IV Q8H GONZÁLEZ Last Admin: 06/27/19 06:32 Dose: 250 mls/hr Ceftriaxone Sodium/Dextrose 1 (gm/ Premix) 50 mls @ 100 mls/hr IV ONETIME ONE Stop: 06/27/19 11:15 Last Admin: 06/27/19 11:06 Dose: 100 mls/hr Ketorolac Tromethamine (Toradol) 30 mg IV Q6H PRN PRN Reason: Pain (moderate 4-6) Last Admin: 06/27/19 06:27 Dose: 30 mg Sodium Chloride (Saline Flush) 10 ml FLUSH ASDIRECTED PRN PRN Reason: Keep Vein Open Sodium Chloride (Saline Flush) 2.5 ml FLUSH ASDIRECTED PRN PRN Reason: Keep Vein Open Discontinued Medications Enoxaparin Sodium (Lovenox) 30 mg SUBCUT Q24H GONZÁLEZ Last Admin: 06/26/19 17:26 Dose: 30 mg Ceftriaxone Sodium/Dextrose 1 (gm/ Premix) 50 mls @ 100 mls/hr IV ONETIME ONE Stop: 06/26/19 14:33 Last Admin: 06/26/19 14:16 Dose: Not Given Vancomycin HCl 1 gm/ Sodium (Chloride) 250 mls @ 166 mls/hr IV ONETIME ONE Stop: 06/26/19 15:38 Last Admin: 06/26/19 14:49 Dose: 166 mls/hr Vancomycin HCl (Pharmacy To Dose - Vancomycin) 1 dose .XX ASDIRECTED GONZÁLEZ - Exam General: Alert, Oriented, Cooperative, No Acute Distress Lungs: Clear to Auscultation, Normal Respiratory Effort Cardiovascular: Regular Rate Extremities: Other (Cellulitis margins marked. Warm and tender. ) - Problem List Review Problem List Initiated/Reviewed/Updated: Yes - My Orders Last 24 Hours: My Active Orders 06/27/19 10:46 cefTRIAXone [Rocephin in Dextrose,Iso-Osm 1 GM/50 ML] 1 gm Premix Bag 1 bag IV ONETIME 06/28/19 05:11 CBC WITH AUTO DIFF [HEME] AM COMPREHENSIVE METABOLIC PN,CMP [CHEM] AM - Plan Plan:: A: 1. Right leg cellulitis 2. leukocytosis P: 1. right leg cellulitis- will add ceftriaxone one time for cellulitis. Continue with vancomycin. Will continue to monitor and pain control. Dispo:1-2 days
[2019-06-27] MEDS: Acetaminophen 325 MG Tab PO PRN (12:37)
[2019-06-27] MEDS: VANCOMYCIN/WATER FOR INJ (PEG) 1.5 GM in Premix Bag 1 BAG IV SCH (15:53)
[2019-06-27] MEDS: Enoxaparin 40 MG/0.4 ML Syringe SUBCUT SCH (15:55)
[2019-06-27] MEDS ORDERED: Ondansetron 4 MG Tab.DIS PO PRN (17:53)
[2019-06-28] MEDS: VANCOMYCIN/WATER FOR INJ (PEG) 1.5 GM in Premix Bag 1 BAG IV SCH ×3 (00:06→15:46)
[2019-06-28] MEDS: Acetaminophen 325 MG Tab PO PRN ×2 (00:14→15:51)
[2019-06-28 05:43] LABS: BLOOD UREA NITROGEN,BUN 9 mg/dL (7.0-18.0); CARBON DIOXIDE,CO2 23.6 mmol/L (21.0-32.0); CHLORIDE,CL 106 mmol/L (98-107); GLUCOSE RANDOM 105 mg/dL (74-106); POTASSIUM,K 3.4 mmol/L (3.5-5.1); SODIUM,NA 141 mmol/L (136-148)
--- NOTE | 2019-06-28 09:53 | PCM.PN ---
- General Info Date of Service: 06/28/19 Admission Dx/Problem (Free Text): Admission Diagnosis/Problem Admission Diagnosis/Problem Cellulitis Subjective Update: Feeling improved today, no chest pain or SOB. No diarrhea. Feels redness has improved and pain is improved as well to R knee Functional Status: Reports: Pain Controlled, Tolerating Diet, Ambulating, Urinating - Review of Systems General: Reports: Fever HEENT: Reports: No Symptoms. Denies: Headaches, Sore Throat, Visual Changes Pulmonary: Reports: No Symptoms. Denies: Shortness of Breath Cardiovascular: Reports: No Symptoms. Denies: Chest Pain Gastrointestinal: Reports: No Symptoms. Denies: Abdominal Pain, Nausea, Vomiting Genitourinary: Reports: No Symptoms Musculoskeletal: Reports: Leg Pain (R lower leg) Skin: Reports: No Symptoms Neurological: Reports: No Symptoms Psychiatric: Reports: No Symptoms - Patient Data Vitals - Most Recent: Last Vital Signs Temp 99.3 F 06/28/19 08:00 Pulse 84 06/28/19 08:00 Resp 15 06/28/19 08:00 BP 115/72 06/28/19 08:00 Pulse Ox 95 06/28/19 08:00 Weight - Most Recent: 118.433 kg I&O - Last 24 Hours: Intake & Output 06/27/19 06/28/19 06/28/19 22:59 06:59 14:59 Intake Total 1544 2500 Output Total 1350 700 Balance 194 1800 Lab Results Last 24 Hours: Laboratory Results - last 24 hr 06/27/19 06/27/19 06/28/19 Range/Units 14:39 23:33 05:06 WBC 14.02 H (4.0-11.0) K/uL RBC 4.06 L (4.50-5.90) M/uL Hgb 12.5 L (13.0-17.0) g/dL Hct 37.6 L (38.0-50.0) % MCV 92.6 (80.0-98.0) fL MCH 30.8 (27.0-32.0) pg MCHC 33.2 (31.0-37.0) g/dL RDW Std Deviation 44.9 (28.0-62.0) fl RDW Coeff of Yusuf 13 (11.0-15.0) % Plt Count 186 (150-400) K/uL MPV 10.30 (7.40-12.00) fL Neut % (Auto) 81.4 H (48.0-80.0) % Lymph % (Auto) 10.6 L (16.0-40.0) % [place] % (Auto) 7.8 (0.0-15.0) % Eos % (Auto) 0.1 (0.0-7.0) % Baso % (Auto) 0.1 (0.0-1.5) % Neut # (Auto) 11.4 H (1.4-5.7) K/uL Lymph # (Auto) 1.5 (0.6-2.4) K/uL [place] # (Auto) 1.1 H (0.0-0.8) K/uL Eos # (Auto) 0.0 (0.0-0.7) K/uL Baso # (Auto) 0.0 (0.0-0.1) K/uL Nucleated RBC % 0.0 /100WBC Nucleated RBCs # 0 K/uL Sodium (136-148) mmol/L Potassium (3.5-5.1) mmol/L Chloride (98-107) mmol/L Carbon Dioxide (21.0-32.0) mmol/L BUN (7.0-18.0) mg/dL Creatinine (0.8-1.3) mg/dL Est Cr Clr Drug Dosing mL/min Estimated GFR (MDRD) ml/min Glucose (74-106) mg/dL Calcium (8.5-10.1) mg/dL Total Bilirubin (0.2-1.0) mg/dL AST (15-37) IU/L ALT (14-63) IU/L Alkaline Phosphatase (46-116) U/L Total Protein (6.4-8.2) g/dL Albumin (3.4-5.0) g/dL Globulin (2.6-4.0) g/dL Albumin/Globulin Ratio (0.9-1.6) Vancomycin Trough 9.2 10.3 H (5.0-10.0) ug/mL 06/28/19 Range/Units 05:06 WBC (4.0-11.0) K/uL RBC (4.50-5.90) M/uL Hgb (13.0-17.0) g/dL Hct (38.0-50.0) % MCV (80.0-98.0) fL MCH (27.0-32.0) pg MCHC (31.0-37.0) g/dL RDW Std Deviation (28.0-62.0) fl RDW Coeff of Yusuf (11.0-15.0) % Plt Count (150-400) K/uL MPV (7.40-12.00) fL Neut % (Auto) (48.0-80.0) % Lymph % (Auto) (16.0-40.0) % [place] % (Auto) (0.0-15.0) % Eos % (Auto) (0.0-7.0) % Baso % (Auto) (0.0-1.5) % Neut # (Auto) (1.4-5.7) K/uL Lymph # (Auto) (0.6-2.4) K/uL [place] # (Auto) (0.0-0.8) K/uL Eos # (Auto) (0.0-0.7) K/uL Baso # (Auto) (0.0-0.1) K/uL Nucleated RBC % /100WBC Nucleated RBCs # K/uL Sodium 141 (136-148) mmol/L Potassium 3.4 L (3.5-5.1) mmol/L Chloride 106 (98-107) mmol/L Carbon Dioxide 23.6 (21.0-32.0) mmol/L BUN 9 (7.0-18.0) mg/dL Creatinine 1.0 (0.8-1.3) mg/dL Est Cr Clr Drug Dosing 110.91 mL/min Estimated GFR (MDRD) > 60.0 ml/min Glucose 105 (74-106) mg/dL Calcium 8.1 L (8.5-10.1) mg/dL Total Bilirubin 1.1 H (0.2-1.0) mg/dL AST 14 L (15-37) IU/L ALT 21 (14-63) IU/L Alkaline Phosphatase 55 (46-116) U/L Total Protein 6.4 (6.4-8.2) g/dL Albumin 2.7 L (3.4-5.0) g/dL Globulin 3.7 (2.6-4.0) g/dL Albumin/Globulin Ratio 0.7 L (0.9-1.6) Vancomycin Trough (5.0-10.0) ug/mL Doc Results Last 24 Hours: Microbiology 06/26/19 14:55 Aerobic Blood Culture - Preliminary Blood - Venous - Lab Draw NO GROWTH AFTER 1 DAY Anaerobic Blood Culture - Final 06/26/19 14:45 Aerobic Blood Culture - Preliminary Blood - Venous NO GROWTH AFTER 1 DAY Anaerobic Blood Culture - Preliminary NO GROWTH AFTER 1 DAY Med Orders - Current: Current Medications Acetaminophen (Tylenol) 650 mg PO Q4H PRN PRN Reason: Pain (Mild 1-3)/fever Last Admin: 06/28/19 00:14 Dose: 650 mg Albuterol/Ipratropium (Duoneb 3.0-0.5 Mg/3 Ml) 3 ml NEB Q4HRRT PRN PRN Reason: Shortness Of Breath/wheezing Enoxaparin Sodium (Lovenox) 40 mg SUBCUT Q24H [facility] Last Admin: 06/27/19 15:55 Dose: 40 mg Sodium Chloride (Normal Saline) 1,000 mls @ 75 mls/hr IV ASDIRECTED GONZÁLEZ Last Admin: 06/27/19 22:47 Dose: 75 mls/hr Vancomycin HCl 1.5 gm/ Premix 300 mls @ 300 mls/hr IV Q8H [facility] Last Admin: 06/28/19 08:33 Dose: 300 mls/hr Ketorolac Tromethamine (Toradol) 30 mg IV Q6H PRN PRN Reason: Pain (moderate 4-6) Last Admin: 06/27/19 17:52 Dose: 30 mg Ondansetron HCl (Zofran Odt) 4 mg PO Q6H PRN PRN Reason: Nausea Sodium Chloride (Saline Flush) 10 ml FLUSH ASDIRECTED PRN PRN Reason: Keep Vein Open Sodium Chloride (Saline Flush) 2.5 ml FLUSH ASDIRECTED PRN PRN Reason: Keep Vein Open Discontinued Medications Enoxaparin Sodium (Lovenox) 30 mg SUBCUT Q24H [facility] Last Admin: 06/26/19 17:26 Dose: 30 mg Ceftriaxone Sodium/Dextrose 1 (gm/ Premix) 50 mls @ 100 mls/hr IV ONETIME ONE Stop: 06/26/19 14:33 Last Admin: 06/26/19 14:16 Dose: Not Given Vancomycin HCl 1 gm/ Sodium (Chloride) 250 mls @ 166 mls/hr IV ONETIME ONE Stop: 06/26/19 15:38 Last Admin: 06/26/19 14:49 Dose: 166 mls/hr Vancomycin HCl 1.25 gm/ Sodium (Chloride) 250 mls @ 250 mls/hr IV Q8H [facility] Last Admin: 06/27/19 15:59 Dose: Not Given Ceftriaxone Sodium/Dextrose 1 (gm/ Premix) 50 mls @ 100 mls/hr IV ONETIME ONE Stop: 06/27/19 11:15 Last Admin: 06/27/19 11:06 Dose: 100 mls/hr Vancomycin HCl (Pharmacy To Dose - Vancomycin) 1 dose .XX ASDIRECTED GONZÁLEZ - Exam General: Alert, Oriented, Cooperative, No Acute Distress Lungs: Clear to Auscultation, Normal Respiratory Effort Cardiovascular: Regular Rate, Regular Rhythm GI/Abdominal Exam: Normal Bowel Sounds, Soft, Non-Tender Extremities: Normal Inspection, Normal Range of Motion, No Pedal Edema Wound/Incisions: Erythema Improving (R lower leg, pain improved as well with movement of knee joint. healing abrasion to anterior knee) Psy/Mental Status: Alert, Normal Affect, Normal Mood - Problem List & Annotations (1) Cellulitis SNOMED Code(s): 779423738 Code(s): L03.90 - CELLULITIS, UNSPECIFIED Status: Acute Priority: High Current Visit: Yes Qualifiers: Site of cellulitis: extremity Site of cellulitis of extremity: lower extremity Laterality: right Qualified Code(s): L03.115 - Cellulitis of right lower limb Annotation/Comment:: Area of right patellar bursa (2) Tobacco user SNOMED Code(s): 299961862 Code(s): Z72.0 - TOBACCO USE Status: Chronic Priority: Medium Current Visit: Yes - Problem List Review Problem List Initiated/Reviewed/Updated: Yes - Plan Plan:: This 49 year old male admitted with cellulitis of R leg. 1. Right leg cellulitis: Improving. will continue Rocephin 2 gm Q24h with Vancomycin. Leukocytosis improving, mild temp overnight. No knee joint involvement. Dispo:Needs continued antibiotics, change to inpatient status.
[2019-06-28] MEDS: cefTRIAXone 2 GM in Premix Bag 1 BAG IV SCH (11:21)
[2019-06-28] MEDS: Sodium Chloride 0.9% 1,000 ML IV SCH (14:28)
[2019-06-28] MEDS: Enoxaparin 40 MG/0.4 ML Syringe SUBCUT SCH (15:49)
[2019-06-29] MEDS: VANCOMYCIN/WATER FOR INJ (PEG) 1.5 GM in Premix Bag 1 BAG IV SCH ×2 (00:01→09:06)
[2019-06-29 07:31] LABS: BLOOD UREA NITROGEN,BUN 9 mg/dL (7.0-18.0); CARBON DIOXIDE,CO2 23.8 mmol/L (21.0-32.0); CHLORIDE,CL 106 mmol/L (98-107); GLUCOSE RANDOM 107 mg/dL (74-106); POTASSIUM,K 3.6 mmol/L (3.5-5.1); SODIUM,NA 140 mmol/L (136-148)
[2019-06-29] MEDS: cefTRIAXone 2 GM in Premix Bag 1 BAG IV SCH (10:48)
--- NOTE | 2019-06-29 14:15 | PCM.DCSUM1 ---
<Clayton Abdul - Last Filed: 06/29/19 17:34> Discharge Summary - Hospital Course Free Text/Narrative:: 49 y/o male with history of recurrent right leg cellulitis admitted for right leg cellulitis. He was started on Vancomycin and ceftriaxone. Fever and white count resolved. Pain was more tolerable. He was hemodynamically stable during this hospitalization. He was discharged home on Bactrim and Keflex for 10 days. He will need to F/u with PCP. - Discharge Data Discharge Date: 06/29/19 Discharge Disposition: Home, Self-Care 01 Condition: Fair - Referral to Home Health Primary Care Physician: PCP None - Patient Instructions Diet: Regular Diet as Tolerated Activity: Apply Ice, As Tolerated, Elevate Extremity Notify Provider of: Fever, Increased Pain, Swelling and Redness, Drainage, Nausea and/or Vomiting - Discharge Plan *PRESCRIPTION DRUG MONITORING PROGRAM REVIEWED*: Not Applicable *COPY OF PRESCRIPTION DRUG MONITORING REPORT IN PATIENT EDWIGE: Not Applicable Prescriptions/Med Rec: cephALEXin [Keflex] 500 mg PO Q8H 10 Days #30 cap Sulfamethoxazole/Trimethoprim [Bactrim Ds Tablet] 1 each PO BID 10 Days #20 tablet Home Medications: Home Meds Cetirizine [ZyrTEC] 10 mg PO DAILY 01/02/18 [History] Multivitamin [Multi-Day Vitamins] 1 tab DAILY 01/02/18 [History] Naproxen 500 mg PO DAILY 01/02/18 [History] Sulfamethoxazole/Trimethoprim [Bactrim Ds Tablet] 1 each PO BID 10 Days #20 tablet 06/29/19 [Rx] cephALEXin [Keflex] 500 mg PO Q8H 10 Days #30 cap 06/29/19 [Rx] Patient Handouts: Cellulitis, Adult, [id number], Cephalexin tablets or capsules, Sulfamethoxazole; Trimethoprim, [id number]-[id number] tablets Referrals: [facility] [Outside] Ke Isaac MD [Resident] - 07/06/19 3:30 pm - Discharge Summary/Plan Comment DC Time >30 min.: No - Patient Data Vitals - Most Recent: Last Vital Signs Temp 36.6 C 06/29/19 12:00 Pulse 74 06/29/19 12:00 Resp 16 06/29/19 12:00 BP 122/73 06/29/19 12:00 Pulse Ox 95 06/29/19 12:00 Weight - Most Recent: 118.433 kg I&O - Last 24 hours: Intake & Output 06/28/19 06/29/19 06/29/19 22:59 06:59 14:59 Intake Total 1736 2000 1150 Output Total 525 1525 500 Balance 1211 140 650 Lab Results - Last 24 hrs: Laboratory Results - last 24 hr 06/29/19 06/29/19 06/29/19 Range/Units 07:07 07:07 07:07 WBC 11.75 H (4.0-11.0) K/uL RBC 3.97 L (4.50-5.90) M/uL Hgb 12.3 L (13.0-17.0) g/dL Hct 36.5 L (38.0-50.0) % MCV 91.9 (80.0-98.0) fL MCH 31.0 (27.0-32.0) pg MCHC 33.7 (31.0-37.0) g/dL RDW Std Deviation 44.5 (28.0-62.0) fl RDW Coeff of Yusuf 13 (11.0-15.0) % Plt Count 220 (150-400) K/uL MPV 10.60 (7.40-12.00) fL Neut % (Auto) 76.0 (48.0-80.0) % Lymph % (Auto) 12.6 L (16.0-40.0) % [place] % (Auto) 10.5 (0.0-15.0) % Eos % (Auto) 0.8 (0.0-7.0) % Baso % (Auto) 0.1 (0.0-1.5) % Neut # (Auto) 8.9 H (1.4-5.7) K/uL Lymph # (Auto) 1.5 (0.6-2.4) K/uL [place] # (Auto) 1.2 H (0.0-0.8) K/uL Eos # (Auto) 0.1 (0.0-0.7) K/uL Baso # (Auto) 0.0 (0.0-0.1) K/uL Nucleated RBC % 0.0 /100WBC Nucleated RBCs # 0 K/uL Sodium 140 (136-148) mmol/L Potassium 3.6 (3.5-5.1) mmol/L Chloride 106 (98-107) mmol/L Carbon Dioxide 23.8 (21.0-32.0) mmol/L BUN 9 (7.0-18.0) mg/dL Creatinine 0.9 (0.8-1.3) mg/dL Est Cr Clr Drug Dosing 123.23 mL/min Estimated GFR (MDRD) > 60.0 ml/min Glucose 107 H (74-106) mg/dL Calcium 8.2 L (8.5-10.1) mg/dL Vancomycin Trough 11.1 H (5.0-10.0) ug/mL YVONNE Results - Last 24 hrs: Microbiology 06/26/19 14:55 Aerobic Blood Culture - Preliminary Blood - Venous - Lab Draw NO GROWTH AFTER 2 DAYS Anaerobic Blood Culture - Final 06/26/19 14:45 Aerobic Blood Culture - Preliminary Blood - Venous NO GROWTH AFTER 2 DAYS Anaerobic Blood Culture - Preliminary NO GROWTH AFTER 2 DAYS Med Orders - Current: Current Medications Discontinued Medications Acetaminophen (Tylenol) 650 mg PO Q4H PRN PRN Reason: Pain (Mild 1-3)/fever Last Admin: 06/28/19 15:51 Dose: 650 mg Albuterol/Ipratropium (Duoneb 3.0-0.5 Mg/3 Ml) 3 ml NEB Q4HRRT PRN PRN Reason: Shortness Of Breath/wheezing Enoxaparin Sodium (Lovenox) 30 mg SUBCUT Q24H [facility] Last Admin: 06/26/19 17:26 Dose: 30 mg Enoxaparin Sodium (Lovenox) 40 mg SUBCUT Q24H [facility] Last Admin: 06/28/19 15:49 Dose: 40 mg Ceftriaxone Sodium/Dextrose 1 (gm/ Premix) 50 mls @ 100 mls/hr IV ONETIME ONE Stop: 06/26/19 14:33 Last Admin: 06/26/19 14:16 Dose: Not Given Vancomycin HCl 1 gm/ Sodium (Chloride) 250 mls @ 166 mls/hr IV ONETIME ONE Stop: 06/26/19 15:38 Last Admin: 06/26/19 14:49 Dose: 166 mls/hr Sodium Chloride (Normal Saline) 1,000 mls @ 75 mls/hr IV ASDIRECTED [facility] Last Admin: 06/28/19 14:28 Dose: 75 mls/hr Vancomycin HCl 1.25 gm/ Sodium (Chloride) 250 mls @ 250 mls/hr IV Q8H [facility] Last Admin: 06/27/19 15:59 Dose: Not Given Ceftriaxone Sodium/Dextrose 1 (gm/ Premix) 50 mls @ 100 mls/hr IV ONETIME ONE Stop: 06/27/19 11:15 Last Admin: 06/27/19 11:06 Dose: 100 mls/hr Vancomycin HCl 1.5 gm/ Premix 300 mls @ 300 mls/hr IV Q8H [facility] Last Admin: 06/29/19 09:06 Dose: 300 mls/hr Ceftriaxone Sodium/Dextrose 2 (gm/ Premix) 50 mls @ 100 mls/hr IV Q24H [facility] Last Admin: 06/29/19 10:48 Dose: 100 mls/hr Ketorolac Tromethamine (Toradol) 30 mg IV Q6H PRN PRN Reason: Pain (moderate 4-6) Last Admin: 06/27/19 17:52 Dose: 30 mg Ondansetron HCl (Zofran Odt) 4 mg PO Q6H PRN PRN Reason: Nausea Sodium Chloride (Saline Flush) 10 ml FLUSH ASDIRECTED PRN PRN Reason: Keep Vein Open Sodium Chloride (Saline Flush) 2.5 ml FLUSH ASDIRECTED PRN PRN Reason: Keep Vein Open Vancomycin HCl (Pharmacy To Dose - Vancomycin) 1 dose .XX ASDIRECTED [facility] <Rodriguez Reed - Last Filed: 06/30/19 20:36> Discharge Summary - Referral to Home Health Primary Care Physician: PCP None - Patient Data Vitals - Most Recent: Last Vital Signs Temp 36.6 C 06/29/19 12:00 Pulse 74 06/29/19 12:00 Resp 16 06/29/19 12:00 BP 122/73 06/29/19 12:00 Pulse Ox 95 06/29/19 12:00 YVONNE Results - Last 24 hrs: Microbiology 06/26/19 14:55 Aerobic Blood Culture - Preliminary Blood - Venous - Lab Draw NO GROWTH AFTER 4 DAYS Anaerobic Blood Culture - Final 06/26/19 14:45 Aerobic Blood Culture - Preliminary Blood - Venous NO GROWTH AFTER 4 DAYS Anaerobic Blood Culture - Preliminary NO GROWTH AFTER 4 DAYS Med Orders - Current: Current Medications Discontinued Medications Acetaminophen (Tylenol) 650 mg PO Q4H PRN PRN Reason: Pain (Mild 1-3)/fever Last Admin: 06/28/19 15:51 Dose: 650 mg Albuterol/Ipratropium (Duoneb 3.0-0.5 Mg/3 Ml) 3 ml NEB Q4HRRT PRN PRN Reason: Shortness Of Breath/wheezing Enoxaparin Sodium (Lovenox) 30 mg SUBCUT Q24H [facility] Last Admin: 06/26/19 17:26 Dose: 30 mg Enoxaparin Sodium (Lovenox) 40 mg SUBCUT Q24H [facility] Last Admin: 06/28/19 15:49 Dose: 40 mg Ceftriaxone Sodium/Dextrose 1 (gm/ Premix) 50 mls @ 100 mls/hr IV ONETIME ONE Stop: 06/26/19 14:33 Last Admin: 06/26/19 14:16 Dose: Not Given Vancomycin HCl 1 gm/ Sodium (Chloride) 250 mls @ 166 mls/hr IV ONETIME ONE Stop: 06/26/19 15:38 Last Admin: 06/26/19 14:49 Dose: 166 mls/hr Sodium Chloride (Normal Saline) 1,000 mls @ 75 mls/hr IV ASDIRECTED [facility] Last Admin: 06/28/19 14:28 Dose: 75 mls/hr Vancomycin HCl 1.25 gm/ Sodium (Chloride) 250 mls @ 250 mls/hr IV Q8H [facility] Last Admin: 06/27/19 15:59 Dose: Not Given Ceftriaxone Sodium/Dextrose 1 (gm/ Premix) 50 mls @ 100 mls/hr IV ONETIME ONE Stop: 06/27/19 11:15 Last Admin: 06/27/19 11:06 Dose: 100 mls/hr Vancomycin HCl 1.5 gm/ Premix 300 mls @ 300 mls/hr IV Q8H [facility] Last Admin: 06/29/19 09:06 Dose: 300 mls/hr Ceftriaxone Sodium/Dextrose 2 (gm/ Premix) 50 mls @ 100 mls/hr IV Q24H [facility] Last Admin: 06/29/19 10:48 Dose: 100 mls/hr Ketorolac Tromethamine (Toradol) 30 mg IV Q6H PRN PRN Reason: Pain (moderate 4-6) Last Admin: 06/27/19 17:52 Dose: 30 mg Ondansetron HCl (Zofran Odt) 4 mg PO Q6H PRN PRN Reason: Nausea Sodium Chloride (Saline Flush) 10 ml FLUSH ASDIRECTED PRN PRN Reason: Keep Vein Open Sodium Chloride (Saline Flush) 2.5 ml FLUSH ASDIRECTED PRN PRN Reason: Keep Vein Open Vancomycin HCl (Pharmacy To Dose - Vancomycin) 1 dose .XX ASDIRECTED GONZÁLEZ - Free Text/Narrative Note: I have seen and evaluated the patient with the resident. I have discussed findings and treatment plan with the resident. I agree with the assessment and plan outlined in the following note.
== END 2019-06-29 13:10 | disposition home or self-care (01) | DRG 383 ==
LOC: MW.ED 12:53 → OBSVTOIN 16:26 → MW.MS 16:26
PROVIDERS: ADMIT Internal Medicine; ATTEND Internal Medicine
DX: L03.115 Cellulitis of right lower limb (principal); Z91.09 Other allergy status, other than to drugs and biological substances; Z79.899 Other long term (current) drug therapy; Z87.891 Personal history of nicotine dependence
CPT/HCPCS: 36415; 73562-26-RT; 73562-RT; 80048; 80053; 80202; 83605; 85025; 87040; 96361; 96365; 96366; 96372; 96375; 96376; 99283; 99284-25; A9270-GY; G0378; J0696; J1650; J1885; J3370; J7040; J7050

== ENCOUNTER 2020-04-21 11:51 | Emergency (ER) | payer BC, OTHER ==
[2020-04-21] MEDS ORDERED: Acetaminophen 500 MG Tab PO ONE (11:54)
[2020-04-21] MEDS ORDERED: Aspirin 81 MG Tab.Chew PO ONE (11:54)
[2020-04-21] MEDS ORDERED: Sodium Chloride 0.9% 1,000 ML IV ONE ×2 (11:54→12:57)
[2020-04-21] MEDS ORDERED: Ondansetron 4 MG/2 ML SDV IVPUSH ONE (11:58)
--- NOTE | 2020-04-21 11:58 | EDM.PDOC ---
ED HPI GENERAL MEDICAL PROBLEM - General Chief Complaint: Respiratory Problem Stated Complaint: DIZZY, SOB Time Seen by Provider: 04/21/20 11:52 Source of Information: Reports: Patient History Limitations: Reports: No Limitations - History of Present Illness INITIAL COMMENTS - FREE TEXT/NARRATIVE: 50M no PMHx presents for generalized weakness, diaphoresis, dizziness, nausea, and vomting. Symptoms started this morning. Patient states he has been getting worse throughout the day. He denies CP or SOB. He denies abdominal pain. He denies cough or sore throat. +body aches. Uncertain if fever. - Related Data Allergies Allergy/AdvReac Type Severity Reaction Status Date / Time ragweed pollen Allergy Intermediate Sneezing Verified 04/21/20 12:00 grass pollen-perennial rye, Allergy Sneezing Verified 04/21/20 12:00 standar meperidine [From Demerol] Allergy Hives Verified 04/21/20 12:00 weed pollen Allergy Sneezing Verified 04/21/20 12:00 Home Meds: Home Meds Cetirizine [ZyrTEC] 10 mg PO DAILY 01/02/18 [History] Naproxen 500 mg PO DAILY 01/02/18 [History] Past Medical History - Past Health History Medical/Surgical History: Denies Medical/Surgical History HEENT History: Reports: Allergic Rhinitis Cardiovascular History: Reports: None Respiratory History: Reports: None Gastrointestinal History: Reports: None Genitourinary History: Reports: None Musculoskeletal History: Reports: None Neurological History: Reports: None Psychiatric History: Reports: None Endocrine/Metabolic History: Reports: None Hematologic History: Reports: None Immunologic History: Reports: None Oncologic (Cancer) History: Reports: None Dermatologic History: Reports: None - Infectious Disease History Infectious Disease History: Reports: Chicken Pox - Past Surgical History Musculoskeletal Surgical History: Reports: ORIF, Other (See Below) Other Musculoskeletal Surgeries/Procedures:: Surgical repair to right tib, fib and tibial plateau and right heel. Social & Family History - Family History Family Medical History: Noncontributory - Caffeine Use Caffeine Use: Reports: Coffee, Energy Drinks, Soda - Living Situation & Occupation Living situation: Reports: , with Spouse Occupation: Employed ED ROS GENERAL - Review of Systems Review Of Systems: Comprehensive ROS is negative, except as noted in HPI. ED EXAM, GENERAL - Physical Exam Exam: See Below Exam Limited By: No Limitations General Appearance: Alert, WD/WN, No Apparent Distress Head: Atraumatic, Normocephalic Respiratory/Chest: No Respiratory Distress, Lungs Clear, Normal Breath Sounds, No Accessory Muscle Use Cardiovascular: Normal Peripheral Pulses, Regular Rate, Rhythm GI/Abdominal: Soft, Non-Tender Extremities: Normal Inspection Neurological: Alert, Sensory/Motor Deficit Psychiatric: Normal Affect Skin Exam: Warm, Diaphoretic EKG INTERPRETATION EKG Date: 04/21/20 Time: 12:08 Rhythm: NSR Rate (Beats/Min): 54 [place]: Normal P-Wave: Present QRS: Normal ST-T: Normal QT: Normal MD/PQ Interval: 177 Course - Vital Signs Last Recorded V/S: Last Vital Signs Temp 94.4 F L 04/21/20 12:38 Pulse 95 04/21/20 12:00 Resp 20 04/21/20 12:00 BP 141/61 H 04/21/20 12:00 Pulse Ox 92 L 04/21/20 12:00 - Orders/Labs/Meds Orders: Active Orders 24 hr Category Date Time Status EKG 12 Lead [EKG Documentation Completion] [RC] STAT Care 04/21/20 15:15 Active EKG Documentation Completion [RC] STAT Care 04/21/20 11:54 Active Labs: Laboratory Tests 04/21/20 04/21/20 04/21/20 Range/Units 11:55 11:55 11:55 WBC 9.30 (4.0-11.0) K/uL RBC 5.04 (4.50-5.90) M/uL Hgb 15.7 (13.0-17.0) g/dL Hct 46.4 (38.0-50.0) % MCV 92.1 (80.0-98.0) fL MCH 31.2 (27.0-32.0) pg MCHC 33.8 (31.0-37.0) g/dL RDW Std Deviation 44.3 (28.0-62.0) fl RDW Coeff of Yusuf 13 (11.0-15.0) % Plt Count 320 (150-400) K/uL MPV 10.90 (7.40-12.00) fL Neut % (Auto) 42.8 L (48.0-80.0) % Lymph % (Auto) 46.0 H (16.0-40.0) % [place] % (Auto) 8.5 (0.0-15.0) % Eos % (Auto) 2.2 (0.0-7.0) % Baso % (Auto) 0.5 (0.0-1.5) % Neut # (Auto) 4.0 (1.4-5.7) K/uL Lymph # (Auto) 4.3 H (0.6-2.4) K/uL [place] # (Auto) 0.8 (0.0-0.8) K/uL Eos # (Auto) 0.2 (0.0-0.7) K/uL Baso # (Auto) 0.1 (0.0-0.1) K/uL Nucleated RBC % 0.0 /100WBC Nucleated RBCs # 0 K/uL Lactate 3.2 H* (0.20-2.00) mmol/L Sodium 139 (136-148) mmol/L Potassium 3.6 (3.5-5.1) mmol/L Chloride 105 (98-107) mmol/L Carbon Dioxide 20.3 L (21.0-32.0) mmol/L BUN 16 (7.0-18.0) mg/dL Creatinine 1.1 (0.8-1.3) mg/dL Est Cr Clr Drug Dosing 99.73 mL/min Estimated GFR (MDRD) > 60.0 ml/min Glucose 140 H (74-106) mg/dL Calcium 8.5 (8.5-10.1) mg/dL Magnesium 2.2 (1.8-2.4) mg/dL Total Bilirubin 0.6 (0.2-1.0) mg/dL AST 45 H (15-37) IU/L ALT 69 H (14-63) IU/L Alkaline Phosphatase 66 (46-116) U/L Troponin I < 0.050 (0.000-0.056) ng/mL B-Natriuretic Peptide (<100) PG/ML Total Protein 7.9 (6.4-8.2) g/dL Albumin 4.2 (3.4-5.0) g/dL Globulin 3.7 (2.6-4.0) g/dL Albumin/Globulin Ratio 1.1 (0.9-1.6) COVID-19 (MILY) (NEGATIVE) 04/21/20 04/21/20 04/21/20 Range/Units 11:55 12:23 15:20 WBC (4.0-11.0) K/uL RBC (4.50-5.90) M/uL Hgb (13.0-17.0) g/dL Hct (38.0-50.0) % MCV (80.0-98.0) fL MCH (27.0-32.0) pg MCHC (31.0-37.0) g/dL RDW Std Deviation (28.0-62.0) fl RDW Coeff of Yusuf (11.0-15.0) % Plt Count (150-400) K/uL MPV (7.40-12.00) fL Neut % (Auto) (48.0-80.0) % Lymph % (Auto) (16.0-40.0) % [place] % (Auto) (0.0-15.0) % Eos % (Auto) (0.0-7.0) % Baso % (Auto) (0.0-1.5) % Neut # (Auto) (1.4-5.7) K/uL Lymph # (Auto) (0.6-2.4) K/uL [place] # (Auto) (0.0-0.8) K/uL Eos # (Auto) (0.0-0.7) K/uL Baso # (Auto) (0.0-0.1) K/uL Nucleated RBC % /100WBC Nucleated RBCs # K/uL Lactate (0.20-2.00) mmol/L Sodium (136-148) mmol/L Potassium (3.5-5.1) mmol/L Chloride (98-107) mmol/L Carbon Dioxide (21.0-32.0) mmol/L BUN (7.0-18.0) mg/dL Creatinine (0.8-1.3) mg/dL Est Cr Clr Drug Dosing mL/min Estimated GFR (MDRD) ml/min Glucose (74-106) mg/dL Calcium (8.5-10.1) mg/dL Magnesium (1.8-2.4) mg/dL Total Bilirubin (0.2-1.0) mg/dL AST (15-37) IU/L ALT (14-63) IU/L Alkaline Phosphatase (46-116) U/L Troponin I < 0.050 (0.000-0.056) ng/mL B-Natriuretic Peptide 14 (<100) PG/ML Total Protein (6.4-8.2) g/dL Albumin (3.4-5.0) g/dL Globulin (2.6-4.0) g/dL Albumin/Globulin Ratio (0.9-1.6) COVID-19 (MILY) NEGATIVE (NEGATIVE) 04/21/20 Range/Units 15:42 WBC (4.0-11.0) K/uL RBC (4.50-5.90) M/uL Hgb (13.0-17.0) g/dL Hct (38.0-50.0) % MCV (80.0-98.0) fL MCH (27.0-32.0) pg MCHC (31.0-37.0) g/dL RDW Std Deviation (28.0-62.0) fl RDW Coeff of Yusuf (11.0-15.0) % Plt Count (150-400) K/uL MPV (7.40-12.00) fL Neut % (Auto) (48.0-80.0) % Lymph % (Auto) (16.0-40.0) % [place] % (Auto) (0.0-15.0) % Eos % (Auto) (0.0-7.0) % Baso % (Auto) (0.0-1.5) % Neut # (Auto) (1.4-5.7) K/uL Lymph # (Auto) (0.6-2.4) K/uL [place] # (Auto) (0.0-0.8) K/uL Eos # (Auto) (0.0-0.7) K/uL Baso # (Auto) (0.0-0.1) K/uL Nucleated RBC % /100WBC Nucleated RBCs # K/uL Lactate 0.9 (0.20-2.00) mmol/L Sodium (136-148) mmol/L Potassium (3.5-5.1) mmol/L Chloride (98-107) mmol/L Carbon Dioxide (21.0-32.0) mmol/L BUN (7.0-18.0) mg/dL Creatinine (0.8-1.3) mg/dL Est Cr Clr Drug Dosing mL/min Estimated GFR (MDRD) ml/min Glucose (74-106) mg/dL Calcium (8.5-10.1) mg/dL Magnesium (1.8-2.4) mg/dL Total Bilirubin (0.2-1.0) mg/dL AST (15-37) IU/L ALT (14-63) IU/L Alkaline Phosphatase (46-116) U/L Troponin I (0.000-0.056) ng/mL B-Natriuretic Peptide (<100) PG/ML Total Protein (6.4-8.2) g/dL Albumin (3.4-5.0) g/dL Globulin (2.6-4.0) g/dL Albumin/Globulin Ratio (0.9-1.6) COVID-19 (MILY) (NEGATIVE) Meds: Medications Discontinued Medications Generic Name Dose Route Start Last Admin Trade Name Freq PRN Reason Stop Dose Admin Acetaminophen 1,000 mg 04/21/20 11:54 04/21/20 12:08 Tylenol Extra Strength PO 04/21/20 11:55 1,000 mg ONETIME ONE Administration Aspirin 324 mg 04/21/20 11:54 04/21/20 12:09 Aspirin PO 04/21/20 11:55 324 mg ONETIME ONE Administration Sodium Chloride 1,000 mls @ 999 mls/hr 04/21/20 11:54 04/21/20 12:13 Normal Saline IV 04/21/20 12:54 999 mls/hr .Bolus ONE Administration Sodium Chloride 1,000 mls @ 999 mls/hr 04/21/20 12:57 04/21/20 13:19 Normal Saline IV 04/21/20 13:57 999 mls/hr .Bolus ONE Administration Ondansetron HCl 4 mg 04/21/20 11:58 04/21/20 12:13 Zofran IVPUSH 04/21/20 11:59 4 mg ONETIME ONE Administration - Re-Assessments/Exams Free Text/Narrative Re-Assessment/Exam: 04/21/20 12:08 EKG non-ischemic; will get basic labs, CXR, will treat symptomatically with tylenol/motrin/zofran, IVFB ordered, will get COVID-19 swabbing, reassess and dispo 04/21/20 13:02 O2 sats consistently low 90s; will put on 2-L NC and reassess. Lactate elevated at 3.2, additional 1-L IVFB ordered. Labs otherwise grossly unremarkable, COVID swab pending 04/21/20 13:19 Patient's COVID testing is negative. Will get CTA to r/o PE as patient is hypoxic, will look for other causes of unexplained hypoxia as well. 04/21/20 15:47 CTA is unremarkable. SpO2 is improved to 92-94% without O2, and patient is TOB user noted to have low O2 sats in previous hospital visits. HE is subjective feeling much better although still a little dizzy. Will f/u repeat lactate and troponin and disposition accordingly. Departure - Departure Time of Disposition: 16:07 Disposition: Home, Self-Care 01 Clinical Impression: Nonspecific syndrome suggestive of viral illness - Discharge Information Instructions: Viral Illness, Adult Referrals: PMD, PMD [Other] Forms: ED Department Discharge Additional Instructions: Your workup did not reveal any specific diagnosis. Your COVID-19 testing was negative. Your cardiac testing checking for signs of a heart attack or damage to the heart muscle was negative. You had a CT scan of your chest which was negat parisa for a blood clot in the lungs and negative for signs of pneumonia or COVID- 19. The nasal swab is sometimes falsely negative, so you are welcome to come back Thursday-Thursday during normal business hours for a repeat COVID swab. Your lactate level which is a test looking for signs of infection was elevated. It came down after intravenous fluids. This test does not indicate any specific cause of infection but rather indicates that your body was working hard to fight off either an infection or some sort of stressor. Because your workup did not reveal any emergent illness, you are not being ad mitted to the hospital, and no definitive treatment is recommended. For this reason, you should follow up with a primary care provider, or if you are feeling worse, you should come back to the ER. Today's visit unfortunately cannot guarantee you a clean bill of health, so this is why it is very important to monitor your symptoms and if you aren't getting better to come back for a reassessment. In order to control fevers, we recommend that you take ibuprofen (aka motrin) 600mg (which is 3x over the counter strength tablets) every 6 hours. You can take this with tylenol (acetaminophen) 1000mg every 6 hours. You can either take them together or alternate every 3 hours. This can reduce fever which lessens metabolic demand. You should also stay hydrated. Avoid chugging large volumes of water and rather work on sipping small volumes of water throughout the day. Chugging water can distend your stomach causing you to feel nauseated and vomit. The following information is given to patients seen in the emergency department who are being discharged to home. This information is to outline your options for follow-up care. We provide all patients seen in our emergency department with a follow-up referral. The need for follow-up, as well as the timing and circumstances, are variable depending upon the specifics of your emergency department visit. If you don't have a primary care physician on staff, we will provide you with a referral. We always advise you to contact your personal physician following an emergency department visit to inform them of the circumstance of the visit and f or follow-up with them and/or the need for any referrals to a consulting specialist. The emergency department will also refer you to a specialist when appropriate. This referral assures that you have the opportunity for follow-up care with a specialist. All of these measure are taken in an effort to provide you with optimal care, which includes your follow-up. Under all circumstances we always encourage you to contact your private physician who remains a resource for coordinating your care. When calling for follow-up care, please make the office aware that this follow-up is from your recent emergency room visit. If for any reason you are refused follow-up, please contact the [facility] Emergency Department at and asked to speak to the emergency department charge nurse. Sepsis Event Note (ED) - Focused Exam Vital Signs: Vital Signs Temp Temp Pulse Resp BP Pulse Ox 04/21/20 12:38 94.4 F L 04/21/20 12:00 92.8 F L 95 20 141/61 H 92 L - My Orders Last 24 Hours: My Active Orders 04/21/20 11:54 EKG Documentation Completion [RC] STAT 04/21/20 15:15 EKG 12 Lead [EKG Documentation Completion] [RC] STAT - Assessment/Plan Last 24 Hours: My Active Orders 04/21/20 11:54 EKG Documentation Completion [RC] STAT 04/21/20 15:15 EKG 12 Lead [EKG Documentation Completion] [RC] STAT
--- NOTE | 2020-04-21 12:29 | CR ---
Chest: Portable view of the chest was obtained. Comparison: No prior chest imaging. Heart size and mediastinum are normal. Lungs are clear with no acute parenchymal change. Bony structures are grossly intact. Impression: 1. Nothing acute is seen on portable chest x-ray. Diagnostic code #1 Study was dictated in MDT
[2020-04-21 12:43] LABS: BLOOD UREA NITROGEN,BUN 16 mg/dL (7.0-18.0); CARBON DIOXIDE,CO2 20.3 mmol/L (21.0-32.0); CHLORIDE,CL 105 mmol/L (98-107); GLUCOSE RANDOM 140 mg/dL (74-106); POTASSIUM,K 3.6 mmol/L (3.5-5.1); SODIUM,NA 139 mmol/L (136-148)
--- NOTE | 2020-04-21 15:02 | CT ---
INDICATION: Hypoxic. Technique CT PE. COMPARISON: No comparison studies are available. FINDINGS: Ectasia of the ascending thoracic aorta measuring 3.9 cm. Adequate opacification of the pulmonary arteries. No filling defects in the pulmonary arteries. Heart size is normal. No mediastinal hilar adenopathy. Basilar atelectasis no central endobronchial lesion. No pleural effusion. No suspicious bony lesions. IMPRESSION: 1. No pulmonary emboli. No acute pulmonary findings. Please note that all CT scans at this facility use dose modulation, iterative reconstruction, and/or weight-based dosing when appropriate to reduce radiation dose to as low as reasonably achievable. Dictated by Mallory Hollingsworth MD @ Apr 21 2020 2:56PM Signed by Dr. Mallory Hollingsworth @ Apr 21 2020 3:01PM
[2020-04-21] MEDS ORDERED: Iopamidol 755 Mg/ML 100 ML Bottle IVPUSH STA (16:14)
== END 2020-04-21 16:35 | disposition home or self-care (01) ==
LOC: MW.ED 11:51
DX: R53.1 Weakness (principal); Z20.828 Contact with and (suspected) exposure to other viral communicable diseases; Z91.09 Other allergy status, other than to drugs and biological substances; Z88.5 Allergy status to narcotic agent
CPT/HCPCS: 36415; 71045; 71275; 80053; 83605; 83735; 83880; 84484; 85025; 87635; 93005; 96361; 96374; 99285; A9270; J2405; J7030; Q9967; 99284; U0002